=== PATIENT | male | born 1950 | race Caucasian/White ===

== ENCOUNTER → 2016-11-08 | Outpatient (CLI) | payer MEDICARE, OTHER | LOC: RAD 15:39 | PROVIDERS: ATTEND Physician Assistant | DX: R05 Cough (principal) | CPT/HCPCS: 71020 ==

== ENCOUNTER → 2017-03-01 | Outpatient (CLI) | payer MEDICARE, OTHER ==
--- NOTE | 2017-03-01 09:32 | RADIOLOGY REPORT (SQ) ---
EXAM DESCRIPTION: VENOUS UNILATERAL LOWER COMPLETED DATE/TIME: 03/01/2017 8:59 am REASON FOR STUDY: LLE SWELLING M79.89 OTHER SPECIFIED SOFT TISSUE DISORDERS COMPARISON: None. TECHNIQUE: Dynamic and static sánchez scale and color images acquired of the left leg venous system. Se lected spectral images acquired with additional compression and augmentation maneuvers. The contralat eral common femoral vein and saphenofemoral junction were also imaged. Images stored on PACS. LIMITATIONS: None. FINDINGS: LEFT COMMON FEMORAL: Normal phasicity, compression and augmentation. No visualized echogenic material on g ray scale. No defects on color images. FEMORAL: Normal compression and augmentation. No visualized echogenic material on sánchez scale. No defe cts on color images. POPLITEAL: Normal compression, augmentation. No visualized echogenic material on sánchez scale. No defec ts on color images. CALF VESSELS: Normal compression, augmentation. No visualized echogenic material on sánchez scale. No de fects on color images. GSV and SSV: Normal compression, augmentation. No visualized echogenic material on sánchez scale. No def ects on color images. ANY DEEP VENOUS INSUFFICIENCY: Not evaluated. ANY EVIDENCE OF POPLITEAL CYST: No. OTHER: No other significant finding. RIGHT COMMON FEMORAL VEIN AND SAPHENOFEMORAL JUNCTION: Normal phasicity, compression and augmentation. No visualized echogenic material on sánchez scale. No de fects on color images. IMPRESSION: NO EVIDENCE OF DVT OR SVT IN THE LEFT LEG. TECHNICAL DOCUMENTATION: JOB ID: [id number] [employer]- All Rights Reserved
== END ==
LOC: SP 08:06
PROVIDERS: ATTEND Internal Medicine Nephrology
DX: M79.89 Other specified soft tissue disorders (principal)
CPT/HCPCS: 93971

== ENCOUNTER 2017-12-28 08:29 | Emergency (ER) | payer MEDICARE, OTHER ==
[2017-12-28] MEDS ORDERED: ASPIRIN 81 MG TABLET, CHEWABLE PO ONE (08:56)
--- NOTE | 2017-12-28 09:55 | RADIOLOGY REPORT (SQ) ---
EXAM DESCRIPTION: CHEST SINGLE VIEW COMPLETED DATE/TIME: 12/28/2017 9:23 am REASON FOR STUDY: cp COMPARISON: Chest films 06/12/2013, 03/05/2014, 11/08/2016 EXAM PARAMETERS: NUMBER OF VIEWS: One view. TECHNIQUE: Single frontal radiographic view of the chest acquired. RADIATION DOSE: NA LIMITATIONS: None. FINDINGS: LUNGS AND PLEURA: Arian lines are present along the right lateral costophrenic sulcus ind icating mild interstitial pulmonary edema. No right pleural effusion There is chronic left pleural thickening, unchanged. No pneumothorax. MEDIASTINUM AND HILAR STRUCTURES: No masses. Contour normal. HEART AND VASCULAR STRUCTURES: Stable mild cardiomegaly, with post sternotomy change BONES: No acute findings. HARDWARE: Left-sided pacemaker/ defibrillator OTHER: No other significant finding. IMPRESSION: Interstitial pulmonary edema seen with Arian lines along the right lateral costophrenic sulcus TECHNICAL DOCUMENTATION: JOB ID: [id number] [email or web address]- All Rights Reserved Reading location - IP/workstation name: [email or web address]
[2017-12-28 10:22] LABS: ABSOLUTE BASOPHILS # (AUTO) 0.1 10^3/uL (0.0-0.2); ABSOLUTE LYMPHOCYTES (AUTO) 0.5 10^3/uL (0.5-4.7); ABSOLUTE MONOCYTES (AUTO) 0.4 10^3/uL (0.1-1.4); ABSOLUTE NEUT (AUTO) 7.8 10^3/uL (1.7-8.2); BASOPHILS % (AUTO) 0.6 % (0-2); EOSINOPHILS % (AUTO) 0.1 % (0-6); HEMATOCRIT 43.9 % (37.9-51.0); HEMOGLOBIN 14.7 g/dL (13.5-17.0); LYMPHOCYTES % (AUTO) 5.5 % (13-45); MEAN CORPUSCULAR HEMOGLOBIN 32.9 pg (27.0-33.4); MEAN CORPUSCULAR HGB CONC 33.5 g/dL (32.0-36.0); MEAN CORPUSCULAR VOLUME 98 fl (80-97); MONOCYTES % (AUTO) 4.5 % (3-13); PLATELET COUNT 150 10^3/uL (150-450); RED BLOOD COUNT 4.47 10^6/uL (4.35-5.55); RED CELL DISTRIBUTION WIDTH 14.9 % (11.5-14.0); SEGMENTED NEUTROPHILS % (AUTO) 89.3 % (42-78); TOTAL CELLS COUNTED % (AUTO) 100 %; WHITE BLOOD COUNT 8.8 10^3/uL (4.0-10.5)
[2017-12-28 11:41] LABS: ALANINE AMINOTRANSFERASE 17 U/L (21-72); ALBUMIN 3.7 g/dL (3.5-5.0); ALKALINE PHOSPHATASE 65 U/L (38-126); ASPARTATE AMINO TRANSFERASE 31 U/L (17-59); BILIRUBIN,DIRECT 1.3 mg/dL (0.0-0.4); BILIRUBIN,TOTAL 1.3 mg/dL (0.2-1.3); BLOOD UREA NITROGEN 36 mg/dL (7-20); CALCIUM 9.2 mg/dL (8.4-10.2); CHLORIDE 94 mmol/L (98-107); CREATINE KINASE 131 U/L (55-170); GLUCOSE 184 mg/dL (75-110); POTASSIUM 4.6 mmol/L (3.6-5.0); TOTAL PROTEIN 6.7 g/dL (6.3-8.2)
[2017-12-28 11:47] LABS: CARBON DIOXIDE 21 mmol/L (22-30); SODIUM 137.9 mmol/L (137-145)
[2017-12-28 11:48] LABS: ANION GAP 23 (5-19)
[2017-12-28 11:52] LABS: CREATINE KINASE MB 14.3 ng/mL (<4.55)
[2017-12-28 11:54] LABS: TROPONIN I 0.762 ng/mL
[2017-12-28] MEDS ORDERED: ONDANSETRON 4 MG TAB.RAPDIS PO ONE (12:18)
--- NOTE | 2017-12-28 15:16 | ER Document Report ---
ED General - General Chief Complaint: Chest Pain Stated Complaint: PALPITATIONS Time Seen by Provider: 12/28/17 09:27 TRAVEL OUTSIDE OF THE [place] IN LAST 30 DAYS: No - HPI Patient complains to provider of: Chest pain Notes: Patient coming in for evaluation of chest pain chest pressure. Patient is a renal dialysis with history of stents and bypass surgery bypass surgery performed 2016. Patient states wardrobe coordinator Dr. Jeovany Anand. Patient states while at dialysis today around 03/03/1930 started having chest pressure. Upon patient's arrival here to the ER is still having slight pressure but states has improved patient also having some nausea. No radiation of the pain. Patient states recently had cardiac testing performed Carly Anand however is unaware of the results and unaware of the name of the test. Patient otherwise resting comfortably denies any trauma denies any fever chills vomiting diarrhea. - Related Data Allergies/Adverse Reactions: promethazine [From Phenergan] Adverse Reaction (Verified 12/28/17 10:12) Past Medical History - Social History Smoking Status: Former Smoker Frequency of alcohol use: None Drug Abuse: None Family History: Arthritis, CAD, CVA, DM, Hyperlipidemia, Hypertension, Malignancy, Thyroid Disfunction Patient has suicidal ideation: No Patient has homicidal ideation: No - Past Medical History Cardiac Medical History: Reports: Hx Coronary Artery Disease, Hx Heart Attack, Hx Hypercholesterolemia, Hx Hypertension Denies: Hx Atrial Fibrillation, Hx Peripheral Vascular Disease, Hx Heart Murmur Comment Only: Hx Congestive Heart Failure - ? Pulmonary Medical History: Reports: Hx Sleep Apnea Denies: Hx Asthma, Hx Bronchitis, Hx COPD, Hx Pneumonia, Hx Tuberculosis Neurological Medical History: Denies: Hx Cerebrovascular Accident, Hx Seizures Endocrine Medical History: Reports: Hx Diabetes Mellitus Type 1, Hx Diabetes Mellitus Type 2, Hx Hyperthyroidism. Denies: Hx Graves' Disease, Hx Hypothyroidism Renal/ Medical History: Reports: Hx End Stage Renal Disease, Hx Kidney Stones. Denies: Hx Benign Prostatic Hyperplasia, Hx Peritoneal Dialysis GI Medical History: Reports: Hx Gastroesophageal Reflux Disease, Hx Hiatal Hernia. Denies: Hx Crohn's Disease, Hx Irritable Bowel, Hx Liver Failure, Hx Pancreatitis, Hx Ulcer Musculoskeltal Medical History: Reports Hx Arthritis, Denies Hx Multiple Sclerosis, Reports Hx Musculoskeletal Trauma Skin Medical History: Denies Hx MRSA Psychiatric Medical History: Reports: Hx Anxiety, Hx Depression Denies: Hx Bipolar Disorder, Hx Dementia, Hx Post Traumatic Stress Disorder, Hx Schizophrenia Traumatic Medical History: Reports: Hx Fractures - fingers and arm, Hx Traumatic Brain Injury Past Surgical History: Reports: Hx Appendectomy, Hx Cardiac Surgery - defib/ pacemaker placed, Hx Cholecystectomy, Hx Coronary Artery Bypass Graft, Hx Coronary Stent, Hx Open Heart Surgery - quad bypass, pacemaker, stents x4, Hx Pacemaker. Denies: Hx Bowel Surgery, Hx Colostomy, Hx Gastric Bypass Surgery, Hx Herniorrhaphy, Hx Tonsillectomy - Immunizations Immunizations up to date: Yes Hx Diphtheria, Pertussis, Tetanus Vaccination: No Hx Pneumococcal Vaccination: 11/27/10 Review of Systems - Review of Systems Constitutional: No symptoms reported EENT: No symptoms reported Cardiovascular: Chest pain Respiratory: No symptoms reported Gastrointestinal: No symptoms reported Genitourinary: No symptoms reported Male Genitourinary: No symptoms reported Musculoskeletal: No symptoms reported Skin: No symptoms reported Hematologic/Lymphatic: No symptoms reported Neurological/Psychological: No symptoms reported Physical Exam - Vital signs Vitals: Pulse Resp BP Pulse Ox 99 16 106/73 100 12/28/17 08:44 12/28/17 08:44 12/28/17 08:44 12/28/17 08:44 Interpretation: Normal - General General appearance: Appears well, Alert - HEENT Head: Normocephalic, Atraumatic Eyes: Normal Pupils: PERRL - Respiratory Respiratory status: No respiratory distress Chest status: Nontender Breath sounds: Normal Chest palpation: Normal - Cardiovascular Rhythm: Regular Heart sounds: Normal auscultation Murmur: No - Abdominal Inspection: Normal Distension: No distension Bowel sounds: Normal Tenderness: Nontender Organomegaly: No organomegaly - Back Back: Normal, Nontender - Extremities General upper extremity: Normal inspection, Nontender, Normal color, Normal ROM , Normal temperature General lower extremity: Normal inspection, Nontender, Normal color, Normal ROM , Normal temperature, Normal weight bearing. No: Shankar's sign - Neurological Neuro grossly intact: Yes Cognition: Normal Orientation: AAOx4 Diogenes Coma Scale Eye Opening: Spontaneous Diogenes Coma Scale Verbal: Oriented [place] Coma Scale Motor: Obeys Commands Diogenes Coma Scale Total: 15 Speech: Normal Motor strength normal: LUE, RUE, LLE, RLE Sensory: Normal - Psychological Associated symptoms: Normal affect, Normal mood - Skin Skin Temperature: Warm Skin Moisture: Dry Skin Color: Normal Course - Re-evaluation Re-evalutation: 12/28/17 15:10 Patient's EKG showed paced rhythm. Patient's chest pressure resolved spontaneously here in ER. Patient still continued little bit nausea was given Zofran. Troponin was elevated at 0.7. Reviewed patient's previous visits so that this is elevated in light of the patient being a renal dialysis patient. Initially called [facility] try to discuss the patient's case with the wardrobe coordinator however did receive a return phone call from the hospitalist Dr. Aurelio Wylie. Agrees to set transfer the patient at this time. Patient has remained chest pain-free. We will repeat the patient upon around 3:00. 12/28/17 15:29 Notified by nursing staff patient is now complaining of some shortness of breath. Entered the patient's room found the patient now having some audible wheezes listening to the patient patient now has diffuse rhonchi patient is now on nasal cannula 2 L. Patient is tachypneic although patient denies any more chest pressure. Patient requesting DuoNeb. With chest x-ray showing some signs of fluid overload and not getting his full dialysis today fill. To go ahead and place the patient on BiPAP. Patient has been set up for transfer currently waiting for transport 12/28/17 15:47 Second troponin came back at 10. Did call and update at [facility] at this time. Did leave a voicemail for transfer team. 12/28/17 17:16 Return phone call from [facility]. Did update Dr. Vaughn Rubio. Requesting additional Lasix Lovenox and a repeat chest x-ray prior to transport. Transport crew will switch patient over to BiPAP. Patient is currently on full sentences at this time otherwise lungs sound clear. 12/28/17 18:13 Repeat chest x-ray showing no acute changes. Patient feeling better will transition over to CPAP. Patient talking in full sentences stating "I am ready to go get this over with". As well patient transported do not expect any complications - Vital Signs Vital signs: Temp Pulse Resp BP Pulse Ox 98.4 F 99 18 98/74 L 97 12/28/17 16:44 12/28/17 08:44 12/28/17 16:44 12/28/17 16:44 12/28/17 16:42 - Laboratory Result Diagrams: 12/28/17 10:07 12/28/17 11:00 Laboratory results interpreted by me: 12/28/17 12/28/17 12/28/17 10:07 11:00 11:00 MCV 98 H RDW 14.9 H Seg Neutrophils % 89.3 H Lymphocytes % 5.5 L Chloride 94 L Carbon Dioxide 21 L Anion Gap 23 H BUN 36 H Creatinine 8.08 H Est GFR ( Amer) 8 L Est GFR (Non-Af Amer) 7 L Glucose 184 H Direct Bilirubin 1.3 H ALT 17 L CK-MB (CK-2) 14.30 H Critical Care Note - Critical Care Note Total time excluding time spent on procedures (mins): 80 Comments: Multiple conversations with transferring facility this patient's conditioning the change after being diagnosed with an STEMI. Also time spent consulting with his nephrology team managing BiPAP Discharge - Discharge Clinical Impression: Non-STEMI (non-ST elevated myocardial infarction), End stage renal disease on dialysis, Shortness of breath Condition: Good Disposition: [facility] Referrals: DAKOTAH SIMPSON MD [Primary Care Provider] - Follow up as needed
[2017-12-28] MEDS ORDERED: IPRATROPIUM/ALBUTEROL 0.5-2.5 MG/3 ML AMPUL NEB ONE (15:29)
[2017-12-28] MEDS ORDERED: FUROSEMIDE INJ/PF 40 MG/4 ML SDV IV ONE ×2 (15:38→17:12)
[2017-12-28 16:47] VITALS: BP 98/74
[2017-12-28] MEDS ORDERED: ENOXAPARIN SODIUM INJ 80 MG/0.8 ML DISP.SYRIN SUBCUT SCH (17:00)
--- NOTE | 2017-12-28 17:42 | RADIOLOGY REPORT (SQ) ---
EXAM DESCRIPTION: CHEST SINGLE VIEW COMPLETED DATE/TIME: 12/28/2017 5:25 pm REASON FOR STUDY: sob COMPARISON: 12/28/2017 EXAM PARAMETERS: NUMBER OF VIEWS: One view. TECHNIQUE: Single frontal radiographic view of the chest acquired. RADIATION DOSE: NA LIMITATIONS: None. FINDINGS: LUNGS AND PLEURA: The previously described interstitial changes in the right lateral costo phrenic sulcus appear unchanged. The previously described chronic left pleural thickening is unchang ed. No acute consolidations are identified. MEDIASTINUM AND HILAR STRUCTURES: No masses. Contour normal. HEART AND VASCULAR STRUCTURES: Cardiac silhouette remains enlarged. BONES: No acute findings. HARDWARE: AICD device is unchanged in position. Patient is status post median sternotomy. OTHER: No other significant finding. IMPRESSION: No significant interval change. Findings as noted above TECHNICAL DOCUMENTATION: JOB ID: [id number] [employer]- All Rights Reserved Reading location - IP/workstation name: [email or web address]
--- NOTE | 2017-12-28 23:33 | EKG REPORT ---
SEVERITY:- ABNORMAL ECG - ATRIAL-SENSED VENTRICULAR-PACED RHYTHM : Confirmed by: Deena Hess 28-Dec-2017 23:33:07
--- NOTE | 2017-12-28 23:34 | EKG REPORT ---
SEVERITY:- ABNORMAL ECG - ATRIAL-SENSED VENTRICULAR-PACED COMPLEXES : Confirmed by: Deena Hess 28-Dec-2017 23:33:17
== END 2017-12-28 17:35 | disposition short-term general hospital (02) ==
LOC: ER 08:29
DX: I21.4 Non-ST elevation (NSTEMI) myocardial infarction (principal); R07.9 Chest pain, unspecified; E11.22 Type 2 diabetes mellitus with diabetic chronic kidney disease; I12.0 Hypertensive chronic kidney disease with stage 5 chronic kidney disease or end stage renal disease; N18.6 End stage renal disease; E78.00 Pure hypercholesterolemia, unspecified; Z99.2 Dependence on renal dialysis; I25.2 Old myocardial infarction; Z87.820 Personal history of traumatic brain injury
CPT/HCPCS: 93005; 96376; 94640; 99291; 99292; 96372; 96374; 36415; 82553; 82550; 85025; 80053; 84484; 71045; 93010; 94660; A9270 ×3; J1940; J1650; J7620; S0119